=== PATIENT | male | born 1980 | race Caucasian/White ===

== ENCOUNTER 2023-08-20 09:28 | Outpatient (CLI) | payer OTHER, SELFPAY ==
--- NOTE | ~2023-08-20 | XR_ITS ---
Thoracic spine: Clinical Indication: Back pain AP and lateral views were performed. Mild compression fracture of T7, and possibly T8, noted. There is normal alignment of the vertebrae. The intervertebral disc spaces appear normal. Paravertebral soft tissues appear normal. Impression: Mild compression fracture T7, and possibly T8 as well. Reviewed, dictated and finalized at [facility]. TRUCTION DRIVER Impression: Mild compression fracture T7, and possibly T8 as well.
--- NOTE | ~2023-08-20 | XR_ITS ---
EXAMINATION: XR lumbar spine 2-3V DATE: 08/20/2023 10:02 INDICATION: Low back pain. TECHNIQUE: 3 views of lumbar spine were obtained. COMPARISON: Lumbar spine MRI 10/21/2012 FINDINGS: There is 7 degrees dextrocurvature of thoracolumbar spine. There is mild chronic anterior w edging of L1 vertebral body. There is mildly decreased disc height at L1-L2. There is multilevel mild facet joint osteoarthritis. IMPRESSION: 1. Mild lumbar spondylosis. Reviewed, dictated and finalized at location A. [facility] DEPARTMENT CHAIR IMPRESSION: 1. Mild lumbar spondylosis.
== END 2023-08-20 09:29 | disposition home or self-care (01) ==
LOC: ANHIMG 09:37
PROVIDERS: PCP Physician Assistant; Visit Provider Physician Assistant
DX: M47.896 Other spondylosis, lumbar region (principal); S22.060A Wedge compression fracture of T7-T8 vertebra, initial encounter for closed fracture; X58.XXXA Exposure to other specified factors, initial encounter
CPT/HCPCS: 72070; 72100

== ENCOUNTER 2024-01-07 10:02 | Emergency (ER) | payer OTHER, SELFPAY ==
--- NOTE | ~2024-01-07 | XR_ITS ---
EXAMINATION: XR foot LT min 3V DATE: 01/07/2024 11:24 INDICATION: Left lateral foot pain TECHNIQUE: Dorsoplantar, two oblique and lateral views of the left foot were obtained. COMPARISON: None. FINDINGS: Alignment is normal. No fracture. No cortical erosions or periosteal reaction. Joint spaces are mal l. Soft tissues are unremarkable. IMPRESSION: 1. Negative left foot radiographs. Reviewed, dictated and finalized at location A.
[2024-01-07 10:16] VITALS: BP 125/81; PULSE 93; RESP 20; TEMP 36.3; O2SAT 98
--- NOTE | 2024-01-07 11:10 | ED.LOWEXIN ---
HPI - Extremity Injury (Lower) General Chief Complaint: Extremity Injury, Lower Stated Complaint: left foot pain Time Seen by Provider: 01/07/24 10:57 History of Present Illness HPI Narrative: 43-year-old male presents to the emergency room for evaluation of left foot pain. Denies any injury or trauma. Patient states the pain begins on the lateral aspect of his foot and radiates into his Achilles tendon. Patient states the pain is worse with ambulation. Related Data Allergies Allergy/AdvReac Type Severity Reaction Status Date / Time No Known Allergies Allergy Verified 01/07/24 10:16 Review of Systems Review of Systems: ROS unremarkable except for noted in HPI Exam Narrative: GENERAL: Well-appearing, well-nourished, no physical limitations, and in no acute distress. HEAD: Normocephalic, atraumatic. EYES: Conjunctivae normal, PERRLA and EOMI. CHEST: Clear to auscultation. No respiratory distress. No wheezes rales or rhonchi. HEART: Regular rate and rhythm. No murmur heard. Normal peripheral pulses. EXTREMITIES: left foot: +TTP to lateral aspect and dorsal midfoot that extends around ankle and into Achilles heel. no obvious bony abnormality. generalized mild edema. no ecchymosis SKIN: Warm, dry, no rash. No noted wounds NEURO: No focal deficits. Alert and oriented x3. MAEW. CN's II-XI intact bilaterally, antalgic gait PSYCH: Cooperative. Normal mood and affect. Course Vital Signs Vital signs: Vital Signs Temperature 36.3 C L 01/07/24 10:16 Pulse Rate 93 01/07/24 10:16 Respiratory Rate 20 01/07/24 10:16 Blood Pressure 125/81 01/07/24 10:16 Pulse Oximetry 98 01/07/24 10:16 Oxygen Delivery Room Air 01/07/24 10:16 Temperature 36.3 C L 01/07/24 10:16 Pulse Rate 93 01/07/24 10:16 Respiratory Rate 20 01/07/24 10:16 Blood Pressure 125/81 01/07/24 10:16 Pulse Oximetry 98 01/07/24 10:16 Oxygen Delivery Room Air 01/07/24 10:16 MDM - Extremity Injury (Lower) Imaging Data Radiologist's impression: Impressions Foot X-Ray 01/07/24 11:43 IMPRESSION: 1. Negative left foot radiographs. Discharge Plan Discharge Clinical Impression: Acute pain of left foot Patient Disposition: Home, Self-Care Condition: Stable Instructions: Antibiotic Form Prescriptions: New naproxen 500 mg tablet 500 mg PO BID Qty: 20 0RF Follow-up/Referrals: Alan,WAQAS Chau [Primary Care Provider] - Time of Disposition: 12:12
[2024-01-07 12:21] VITALS: BP 118/70; PULSE 84; RESP 16; O2SAT 97
== END 2024-01-07 12:23 | disposition home or self-care (01) ==
PROVIDERS: Emergency Provider Nurse Practitioner Family; PCP Physician Assistant
DX: M79.672 Pain in left foot (principal)
CPT/HCPCS: 73630; 99283

== ENCOUNTER 2024-11-04 17:49 | Emergency (ER) | payer OTHER, SELFPAY ==
[2024-11-04 17:49] VITALS: BP 116/85; PULSE 85; RESP 18; TEMP 36.9; O2SAT 98
--- OUTSIDE RECORDS SUMMARY | 2024-11-04 17:52 | XMS_ITS | Encounter Summary ---
Author Organization [facility] Address [address] [place] [address] Care Team Providers Care Machine Coremaker Name Role Phone Raul Dyer MD Primary Care Provider [phone] Encounter Details Date Type Department Care Team (Latest Contact Info) Description 04/27/2018 Abstract [facility] Vikas Boudreaux MD Social History Tobacco Use Types Packs/Day Years Used Date Smoking Tobacco: Never Assessed Sex and Gender Information Value Date Recorded Sex Assigned at Not on file Legal Sex Male 8:23 PM CDT Gender Identity Not on file Sexual Orientation Not on file documented as of this encounter Plan of Treatment Not on file documented as of this encounter Visit Diagnoses Not on filedocumented in this encounter Care Teams Machine Coremaker Relationship Specialty Start Date End Date Raul Dyer MD PCP - General 12/14/12 documented as of this encounter
--- OUTSIDE RECORDS SUMMARY | 2024-11-04 17:52 | XMS_ITS | Clinical Summary ---
Author Organization [facility] Address [address] [place] [address] Care Team Providers Care Artificial Flowers Dyer Name Role Phone Raul Dyer MD Primary Care Provider [phone] Social History Tobacco Use Types Packs/Day Years Used Date Smoking Tobacco: Never Assessed Sex and Gender Information Value Date Recorded Sex Assigned at Not on file Legal Sex Male 8:23 PM CDT Gender Identity Not on file Sexual Orientation Not on file Last Filed Vital Signs Vital Sign Reading Time Taken Comments Blood Pressure 116/76 02/08/2013 9:13 AM CDT Pulse 84 02/08/2013 9:13 AM CDT Temperature - - Respiratory Rate - - Oxygen Saturation - - Inhaled Oxygen Concentration - - Weight 89.8 kg (198 lb) 02/08/2013 9:13 AM CDT Height 180.3 cm (5' 11 ) 02/08/2013 9:13 AM CDT Body Mass Index 27.62 02/08/2013 9:13 AM CDT Plan of Treatment Health Maintenance Due Date Last Done Comments Annual Physical 1983 Hepatitis C 1998 DTaP, Tdap and Td Vaccines ( 1 - Tdap) 1999 Hepatitis B Vaccines (1 of 3 - 19+ 3-dose series) 1999 COVID-19 Vaccine (2023-2 5 season) 2024 HPV Vaccines Aged Out No longer eligi ble based on patient's age to complete this topic Meningococcal B Vaccine Aged Out No l onger eligible based on patient's age to complete this topic Meningococcal Vaccine Aged Out No lakhwinder daniel eligible based on patient's age to complete this topic Pneumococcal Vaccine: Pediat rics (0 to 5 Years) and At-Risk Patients (6 to 49 Years) Aged Out No longer eligible b ased on patient's age to complete this topic RSV Immunizations Under 20 Months Aged Out No longer eligible based on patient's age to complete this topic Care Teams Artificial Flowers Dyer Relationship Specialty Start Date End Date Raul Dyer MD PCP - General 12/14/12
--- OUTSIDE RECORDS SUMMARY | 2024-11-04 17:52 | XMS_ITS | Continuity of Care Document ---
Author Organization [facility] Address [address] [place] [address] [place] [address] Phone Care Team Providers Care Chief Security And Safety Officer Name Role Phone Raul Dyer MD Unavailable Unavailable Allergies, Adverse Reactions, Alerts Substance Reaction Status Criticality No Known Allergies Active No Inform ation Medications Medication Instructions Dosage Effective Dates (start - stop) Status Comments Lorcet 10/650 10-650 mg tablet take 1 tablet by oral route every 4 - 6 hours as needed for pain - Active PRN for pain, avoid driving or operate machines Procedures Procedure Date OFFICE/OUTPATIENT VISIT, EST OFFICE/OUTPATIENT VISIT, EST PREV VISIT, NEW, AGE 18-39 OFFICE/OUTPATIENT VISIT, NEW Advance Directives Directive Yes / No Effective Date File Name No Information Encounters Encounter Description Practice Location Reason(s) For Visit Diagnoses Date Provider Providers Copied on Encounter [facility], [address] [place], [place], [id number], tel:[phone] [facility] No Information 0 3 Gomez Carter. [address], [address] [place], [place], [id number] , [place]. tel:[phone] Referring Provider: Raul Dyer, [address], [place], [place], [id number]. tel:[phone] OFFICE/OUTPA TIENT VISIT, EST [facility], [address], [place], [place], [id number], tel:[phone] [facility] chronic pain (chief complaint) back pain (chief complaint) Dietary surveillance and counselingLumbago 3 Gomez Carter. [address], [address], [place], [place], [address] , [place]. tel:[phone] Referring Provider: Louie Davis [address], [place], [place], [id number]. tel:[phone] OFFICE/OUTPA TIENT VISIT, [facility], [address], [place], [place], [id number], [place] tel:[phone] [facility] chronic pain (chief complaint) Dietary surveillance and counselingLumbago 3 Gomez Carter. [address], [address] [place], [address] , [place]. tel:[phone] Referring Provider: Louie Davis [address], [place], [place], [address]. tel:[phone] PREV VISIT, NEW, AGE 18-39 [facility], [address], [place], [place], [address], [place] tel:[phone] [facility] Physical (chief complaint) Dietary surveillance and counselingRoutine Medical ExamLumbagoHyperten johan, UnspecifiedRoutine Medical Exam 3 Gomez Carter. [address], [address], [place], [place], [address] , [place]. tel:[phone] Referring Provider: Louie Davis [address] [place], [address]. tel:[phone] Family History Family Member Type Diagnosis Age At Onset Brother Problem (finding) Asthma Mother Problem (finding) Hypertension Mother Problem (finding) hypothyroidism Father Problem (finding) Alive and well Payers Payer name Insurance type Covered republican ID Authoriza tion(s) No Information Social History Type Description Quantity Date Captured Comments Sex Male Smoking Status No Information Chief Complaint And Reason For Visit No Information Plan Of Treatment Date Type Action Status Goal Tobacco cessation counseling completed Goal Tobacco cessation counseling completed Goal Tobacco cessation counseling completed Referral Ordered: Referral: Pain Management. ordered Referral Ordered: MRI NECK SPINE W/O DYE ordered History Of Present Illness Encounter Date Complaint History Of Prese nt Illness No Information Instructions Date Instruction Additional Infor wilbert Decrease caloric intake Related to Dietary surveillance counseling Dietary counseling Related to Di etary surveillance counseling Decrease caloric intake Related to Dietary surveillance counseling Dietary counseling Related to Di etary surveillance counseling Dietary counseling Related to Di etary surveillance counseling Decrease caloric intake Related to Dietary surveillance counseling Assessments Type Assessment Date No Information
--- NOTE | 2024-11-04 17:53 | ED_ITS ---
HPI - General Adult General Chief complaint: Wound/Laceration Stated complaint: laceration right lower leg Source: patient Mode of arrival: ambulatory Limitations: no limitations History of Present Illness HPI narrative: 44-year-old white male accidentally cut his right lateral distal leg with chainsaw causing superficial lacerations. Denies any loss of function. He was given tetanus shot emergency room denies any numbness or weakness or any other injuries. Denies any problems ambulating just has mild pain of the area. He is walking talking seeing and hearing fine without any cough fever sore throat run ny nose dizziness or lightheadedness bleeding or bruising. Cough fever sore throat runny nose or any other complaints. Related Data Allergies Allergy/AdvReac Type Severity Reaction Status Date / Time No Known Allergies Allergy Verified 01/07/24 10:16 Review of Systems Review of Systems: All systems reviewed & are unremarkable except as noted in HPI and below Exam Narrative: White male no apparent distress. Lungs are clear heart is regular rate and rhythm without murmurs gallops rubs. Right leg has 2 superficial lacerations distal to mid lateral leg. Only 1 of them needs a repair which is 7 cm long. there was nontender. Patient was oriented x4 gait was normal motor sensory grossly intact Medical Decision Making MDM Narrative Medical decision making narrative: patient was placed in room 6 with his uncle history physical was performed. Wound was cleansed with wound furniture cleaner and the wound was anesthetized with 8 cc is 1% lidocaine without epinephrine and scrubbed again with wound furniture cleaner strip of skin was cut with a scissors so that the skin and better approximated itself after using 7 soto. Patient tolerated procedure well. Bandage was applied. patient given Tdap Differential Diagnosis Differential Diagnosis: Laceration Discharge Plan Discharge Clinical Impression: Laceration of right lower extremity Qualifiers: Encounter type: initial encounter Qualified Code(s): S81.811A - Laceration without foreign body, right lower leg, initial encounter Patient Disposition: Home Condition: Stable Instructions: Antibiotic Form, Laceration (ED) Additional Instructions: Augmentin 875 twice a day for 5 days. Use hydrogen peroxide twice a day the wound and soap water daily keep clean and dry. Return if you get worse or develops any new symptoms or signs of infection. Return in 7 days to remove soto. Return if you get worse or develops any new symptoms. Tylenol and or ibuprofen as needed for pain. Patient Language: Estonian Prescriptions: New amoxicillin-pot clavulanate 875-125 mg tablet 1 tablet PO Q12H 5 Days Qty: 10 0RF No Action naproxen 500 mg tablet 500 mg PO BID Qty: 20 0RF Follow-up/Referrals: Alan,WAQAS Chau [Primary Care Provider] - Time of Disposition: 18:08
[2024-11-04] MEDS: LIDOCAINE 1% LOCAL INJ 10 ML VIAL INFILTRATE (17:56)
[2024-11-04] MEDS: TETANUS,DIPHTHERIA,AC PERTUSSIS ADULT 0.5 ML (ADACEL) IM (17:57)
--- OUTSIDE RECORDS SUMMARY | 2024-11-04 18:24 | XMS_ITS | Continuity of Care Document ---
Author Organization [facility] Address [address] [place] [address] [place] [address] Phone Care Team Providers Care Roadway Technician Name Role Phone Raul Dyer MD Unavailable [...] Diagnoses Date Provider Providers Copied on Encounter [facility], [address] [place], [place], [id number], tel:[phone] [facility] No Information 0 3 Gomez Carter. [address], [address] [place], [address] , [place]. tel:[phone] Referring Provider: Raul Dyer, [address], [place], [place], [id number]. tel:[phone] OFFICE/OUTPA TIENT VISIT, EST [facility], [address], [place], [place], [id number], tel:[phone] [facility] chronic pain (chief complaint) back pain (chief complaint) Dietary surveillance and counselingLumbago 3 Gomez Carter. [address], [place], [place], [address] , [place]. tel:[phone] Referring Provider: Louie Davis [address], [place], [place], [address]. tel:[phone] OFFICE/OUTPA TIENT VISIT, [facility] [place], [address], [place], [place], [id number], [place] tel:[phone] [facility] chronic pain (chief complaint) Dietary surveillance and counselingLumbago 3 Gomez Carter. [address], [address] [place], [address] , [place]. tel:[phone] Referring Provider: Louie Davis [address], [place], [place], [address]. tel:[phone] PREV VISIT, NEW, AGE 18-39 [facility], [address], [place], [place], [address], [place] tel:[phone] [facility] Physical (chief complaint) Dietary surveillance and counselingRoutine Medical ExamLumbagoHyperten johan, UnspecifiedRoutine Medical Exam 3 Gomez Carter. [address], [place], [place], [address] , [place]. tel:[phone] Referring Provider: Louie Davis [address], [id number]. tel:[phone] Family History Family Member Type Diagnosis Age At Onset Brother Problem (finding) Asthma Mother Problem (finding) Hypertension Mother Problem (finding) hypothyroidism Father Problem (finding) Alive and well Payers Payer name Insurance type Covered libertarian ID Authoriza tion(s) No Information Social History [...] Information Instructions Date Instruction Additional Infor wilbert Dietary counseling Related to Di etary surveillance counseling Decrease caloric intake Related to Dietary surveillance counseling Dietary counseling Related to Di etary surveillance counseling Decrease caloric intake Related to Dietary surveillance counseling Dietary counseling Related to Di etary surveillance counseling Decrease caloric intake Related to Dietary surveillance counseling Assessments Type Assessment Date No Information
--- OUTSIDE RECORDS SUMMARY | 2024-11-04 18:24 | XMS_ITS | Encounter Summary ---
Author Organization [facility] Address [address] [place] [address] Care Team Providers Care Family Caseworker Name Role Phone Raul Dyer MD Primary Care Provider [phone] Encounter Details Date Type Department Care Team (Latest Contact Info) Description 04/27/2018 Abstract [facility] Vikas Boudreaux MD Social History [...] on filedocumented in this encounter Care Teams Family Caseworker Relationship Specialty Start Date End Date Raul Dyer MD PCP - General 12/14/12 documented as of this encounter
--- OUTSIDE RECORDS SUMMARY | 2024-11-04 18:24 | XMS_ITS | Clinical Summary ---
Author Organization [facility] Address [address] [place] [address] Care Team Providers Care Automotive Service Assistant Name Role Phone Raul Dyer MD Primary Care Provider [phone] Social History Tobacco Use Types Packs/Day Years [...] age to complete this topic Care Teams Automotive Service Assistant Relationship Specialty Start Date End Date Raul Dyer MD PCP - General 12/14/12
== END 2024-11-04 18:12 | disposition home or self-care (01) ==
LOC: CHSED 18:23
PROVIDERS: Emergency Provider Emergency Medicine; PCP Physician Assistant
DX: S81.811A Laceration without foreign body, right lower leg, initial encounter (principal); Z23 Encounter for immunization; W29.3XXA Contact with powered garden and outdoor hand tools and machinery, initial encounter
CPT/HCPCS: 12001; 90471; 90715; 99283; J2003